=== PATIENT | female | born 1960 | race American Indian/Alaskan Native ===

== ENCOUNTER 2024-03-31 11:03 | Outpatient (CLI) | payer OTHER, SELFPAY | END 2024-03-31 11:04 | disposition home or self-care (01) | LOC: ANHBWCAUD 11:03 | PROVIDERS: PCP Internal Medicine; Visit Provider Internal Medicine | DX: Z01.10 Encounter for examination of ears and hearing without abnormal findings (principal); H90.3 Sensorineural hearing loss, bilateral; H93.13 Tinnitus, bilateral | CPT/HCPCS: 92557; 92567 ==